=== PATIENT | male | born 1965 | race Caucasian/White ===

== ENCOUNTER 2017-05-01 19:22 | Emergency (ER) | payer OTHER ==
[~2017-05-01] VITALS: Ht 182.9 cm; Wt 84.1 kg
[2017-05-01] MEDS ORDERED: AMIT50TA PO (19:34)
[2017-05-01] MEDS ORDERED: SERO1TAB PO (19:34)
[2017-05-01] MEDS ORDERED: DULO30CA PO (19:34)
[2017-05-01] MEDS ORDERED: AUGMENTIN 875 MG TAB PO ONE (21:15)
[2017-05-01] MEDS ORDERED: LIDOCAINE 1% MDV 20ML VIAL IM ONE (21:15)
[2017-05-01] MEDS ORDERED: ADACEL/BOOSTRIX VACCINE (DIPHTH/PERTUSS/ACELL/TETANUS)0.5ML SYR (90715) IM ONE (21:15)
[2017-05-01] MEDS ORDERED: AUGM875T28 PO (21:49)
[2017-05-01 22:28] VITALS: BP 125/75
== END 2017-05-01 22:35 | disposition home or self-care (01) ==
LOC: M ED 19:22
DX: S01.531A Puncture wound without foreign body of lip, initial encounter (principal); W54.0XXA Bitten by dog, initial encounter; Y92.838 Other recreation area as the place of occurrence of the external cause; Y93.89 Activity, other specified; Y99.9 Unspecified external cause status; A69.20 Lyme disease, unspecified; Z79.899 Other long term (current) drug therapy